=== PATIENT | female | born 1950 | race African-American/Black ===

== ENCOUNTER 2023-05-02 12:00 | Emergency (ER) | payer OTHER ==
[~2023-05-02] VITALS: Ht 162.6 cm; Wt 70.0 kg
[2023-05-02 12:06] VITALS: O2SAT 98
[2023-05-02] MEDS ORDERED: PREDNISONE 20MG TABLET PO ONE (13:00)
[2023-05-02 15:49] VITALS: BP 144/69; PULSE 70; RESP 14; TEMP 98
== END 2023-05-02 15:53 | disposition home or self-care (01) ==
LOC: ER 12:00
DX: T78.3XXA Angioneurotic edema, initial encounter (principal)
CPT/HCPCS: 99285; J7512